=== PATIENT | female | born 1975 | race Caucasian/White ===

== ENCOUNTER 2017-10-20 13:47 | Emergency (ER) | payer OTHER ==
[~2017-10-20] VITALS: Ht 160 cm; Wt 61.2 kg
[2017-10-20 13:56] VITALS: Ht 160 cm; Wt 61.2 kg
[2017-10-20 14:27] LABS: BASOPHIL % 0.6 % (0-2); PLATELET COUNT 273 x10^3mcL (130-400)
[2017-10-20 14:34] LABS: CALCIUM 8.5 mg/dL (8.5-10.1); CARBON DIOXIDE 25.9 mmol/L (21-32); CHLORIDE SERUM 102 mmol/L (98-107); CREATININE SERUM 0.7 mg/dL (0.6-1.0); GFR1 > 60 mL/min; GLUCOSE SERUM 89 mg/dL (74-106); POTASSIUM SERUM 3.9 mmol/L (3.5-5.1); SODIUM SERUM 138 mmol/L (136-145)
[2017-10-20 14:38] LABS: ALBUMIN 3.6 g/dL (3.4-5.0); ALKALINE PHOSPHATASE 84 U/L (46-116); ALT/SGPT 28 U/L (14-59); AST/SGOT 21 U/L (15-37); BILIRUBIN TOTAL 0.4 mg/dL (0.20-1.00); TOTAL PROTEIN, SERUM 7.4 g/dL (6.4-8.2)
[2017-10-20 14:56] LABS: RED CELL DISTRIBUTION WIDTH 17.6 % (11.5-14.5)
[2017-10-20 16:01] VITALS: BP 110/67
== END 2017-10-20 16:01 | disposition home or self-care (01) ==
LOC: ED 13:47
PROVIDERS: Emergency Medicine
DX: R20.2 Paresthesia of skin (principal)
CPT/HCPCS: 36415; 83880; Q0092

== ENCOUNTER 2019-12-19 23:52 | Emergency (ER) | payer OTHER ==
[~2019-12-19] VITALS: Ht 160 cm; Wt 59.4 kg
[2019-12-19 23:58] VITALS: Ht 160 cm; Wt 59.4 kg
[2019-12-20 01:23] VITALS: BP 109/68
== END 2019-12-20 01:23 | disposition home or self-care (01) ==
LOC: ED 23:52
DX: S20.211A Contusion of right front wall of thorax, initial encounter (principal); Z87.442 Personal history of urinary calculi; W01.0XXA Fall on same level from slipping, tripping and stumbling without subsequent striking against object, initial encounter; Y93.89 Activity, other specified; Y92.89 Other specified places as the place of occurrence of the external cause; Y99.8 Other external cause status
CPT/HCPCS: J1885; Q0092